=== PATIENT | female | born 1970 | race Two or more races ===

== ENCOUNTER 2018-01-11 09:02 | Emergency (ER) | payer SELFPAY | END 2018-01-11 10:29 | disposition home or self-care (01) | LOC: ER 09:02 | DX: I10 Essential (primary) hypertension (principal); E11.9 Type 2 diabetes mellitus without complications; Z76.0 Encounter for issue of repeat prescription; Z79.899 Other long term (current) drug therapy | CPT/HCPCS: 99283 ==